=== PATIENT | female | born 1960 | race African-American/Black ===

== ENCOUNTER 2018-03-12 13:41 | Emergency (ER) | END 2018-03-12 14:54 | disposition home or self-care (01) ==

== ENCOUNTER 2018-07-18 09:11 | Emergency (ER) | END 2018-07-18 09:52 | disposition home or self-care (01) ==

== ENCOUNTER 2019-01-09 11:51 | Emergency (ER) | payer BC ==
[~2019-01-09] VITALS: Wt 75.0 kg
[2019-01-09 11:59] VITALS: BP 130/83; PULSE 72; RESP 16
[2019-01-09] MEDS ORDERED: ONDANSETRON 4 MG INJ IV STA (12:22)
[2019-01-09] MEDS ORDERED: morphine 4 MG/ML VIAL IV STA (12:22)
[2019-01-09] MEDS ORDERED: SOD CHLORIDE 0.9% 500 ML IV STA (12:22)
[2019-01-09] MEDS ORDERED: BENA40TA56 PO (12:24)
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
== END 2019-01-09 15:10 | disposition home or self-care (01) ==
LOC: E/R 11:51
DX: S06.0X0A Concussion without loss of consciousness, initial encounter (principal); V49.00XA Driver injured in collision with unspecified motor vehicles in nontraffic accident, initial encounter
CPT/HCPCS: 70450; J7040